=== PATIENT | female | born 2005 | race Two or more races ===

== ENCOUNTER 2024-09-21 01:29 | Emergency (ER) | payer OTHER ==
[~2024-09-21] VITALS: Ht 162.6 cm; Wt 84.1 kg
[2024-09-21 01:42] VITALS: BP 108/65; PULSE 84; RESP 18; TEMP 98.4; O2SAT 100
[2024-09-21] MEDS: IBUPROFEN 400 MG TABLET PO ONE (02:31)
== END 2024-09-21 03:01 | disposition home or self-care (01) ==
LOC: EMS 01:29
DX: S00.531A Contusion of lip, initial encounter (principal); W22.03XA Walked into furniture, initial encounter; Y93.89 Activity, other specified; Y92.89 Other specified places as the place of occurrence of the external cause; Y99.8 Other external cause status
CPT/HCPCS: 99282; Z7502; Z7610

== ENCOUNTER 2024-12-12 22:01 | Emergency (ER) | payer OTHER, MEDICAID ==
[~2024-12-12] VITALS: Ht 162.6 cm; Wt 81.8 kg
[2024-12-12 22:05] VITALS: TEMP 97.9
[2024-12-12] MEDS: ACETAMINOPHEN 500 MG TABLET PO ONE (22:41)
[2024-12-12] MEDS: IBUPROFEN 400 MG TABLET PO ONE (22:41)
[2024-12-13] VITALS: BP 130/84; PULSE 88; RESP 16; O2SAT 100
== END 2024-12-13 00:08 | disposition home or self-care (01) ==
LOC: EMS 22:02
DX: S02.2XXA Fracture of nasal bones, initial encounter for closed fracture (principal); Y04.0XXA Assault by unarmed brawl or fight, initial encounter; Y93.89 Activity, other specified; Y92.89 Other specified places as the place of occurrence of the external cause; Y99.8 Other external cause status
CPT/HCPCS: 70486; 99284; Z7502; Z7610